=== PATIENT | male | born 1990 | race Caucasian/White ===

== ENCOUNTER 2018-09-21 19:45 | Emergency (ER) | payer SELFPAY ==
[2018-09-21 19:51] VITALS: BMI 28.0
[2018-09-21 20:58] VITALS: TEMP 97.7
--- NOTE | 2018-09-21 21:38 | ED PDOC ---
Arrival/HPI - General Chief Complaint: Upper Extremity Problem/Injury Time Seen by Provider: 09/21/18 19:50 Historian: Patient - History of Present Illness Narrative History of Present Illness (Text): 09/21/18 21:36 A 28 year old male, presents to the ED for further evaluation of right shoulder discomfort. Patient states he had been boxing and thinks he "over did it" hitting the bag. He complains of discomfort with his shoulder over the past few days. No history of any blunt trauma. He states he is able to move his arm at the shoulder although he experiences discomfort when doing so. The patient denies fevers, chills, headache, dizziness, chest pain, shortness of breath, dyspnea on exertion, cough, abdominal pain, nausea, vomiting, diarrhea, back pain, neck pain, urinary/bowel changes, or any other complaint. Time/Duration: Other (Several Days) Symptom Onset: Sudden Symptom Course: Unchanged Activities at Onset: Rest, Light Context: Home Past Medical History - Provider Review Nursing Documentation Reviewed: Yes - Infectious Disease Hx of Infectious Diseases: None - Tetanus Immunization Tetanus Immunization: Unknown - Psychiatric Hx Psychophysiologic Disorder: No Hx Substance Use: No - Anesthesia Hx Anesthesia: No - Suicidal Assessment Feels Threatened In Home Enviroment: No Family/Social History - Physician Review Nursing Documentation Reviewed: Yes Family/Social History: No Known Family HX Smoking Status: Never Smoked Hx Alcohol Use: Yes Frequency of alcohol use: Socially Hx Substance Use: No Allergies/Home Meds Allergies/Adverse Reactions: Allergies No Known Allergies Allergy (Verified 09/21/18 19:51) Review of Systems - Physician Review All systems were reviewed & negative as marked: Yes - Review of Systems Constitutional: absent: Fevers Respiratory: absent: SOB, Cough Cardiovascular: absent: Chest Pain, LOPEZ Gastrointestinal: absent: Abdominal Pain, Stool Changes, Diarrhea, Nausea, Vomiting Genitourinary Male: absent: Urinary Output Changes Musculoskeletal: absent: Back Pain, Neck Pain Neurological: absent: Headache, Dizziness Physical Exam Vital Signs Reviewed: Yes Vital Signs Temp Pulse Resp BP Pulse Ox 09/21/18 20:05 97.7 F 90 20 145/88 99 09/21/18 19:54 97.8 F 91 H 18 143/83 97 Temperature: Afebrile Blood Pressure: Normal Pulse: Tachycardic Respiratory Rate: Normal Appearance: Positive for: Well-Appearing, Non-Toxic, Comfortable Pain Distress: None Mental Status: Positive for: Alert and Oriented X 3 - Systems Exam Head: Present: Atraumatic, Normocephalic Pupils: Present: PERRL Extroacular Muscles: Present: EOMI Conjunctiva: Present: Normal Mouth: Present: Moist Mucous Membranes Neck: Present: Normal Range of Motion Respiratory/Chest: Present: Clear to Auscultation, Good Air Exchange. No: Respiratory Distress, Accessory Muscle Use Cardiovascular: Present: Regular Rate and Rhythm, Normal S1, S2. No: Murmurs Abdomen: No: Tenderness, Distention, Peritoneal Signs Back: Present: Normal Inspection Upper Extremity: Present: Normal ROM, Tenderness (Some palpable discomfort to right anterior/ superior shoulder. Discomfort to right shoulder abduction. ), Neurovascularly Intact. No: Cyanosis, Edema Lower Extremity: Present: Normal Inspection. No: Edema Neurological: Present: GCS=15, CN II-XII Intact, Speech Normal Skin: Present: Warm, Dry, Normal Color. No: Rashes Psychiatric: Present: Alert, Oriented x 3, Normal Insight, Normal Concentration Medical Decision Making ED Course and Treatment: Impression: A 28 year old male presents to the ED for further evaluation of right shoulder pain. Plan: -- Right Shoulder X- Ray -- Toradol -- Reassess and disposition Progress Notes: 09/21/18 21:36: Shoulder X- Ray read and interpreted by me shows no acute process 09/21/18 21:42 On re-evaluation, patient feels better and is in no acute distress. I have discussed the results and plan with the patient, who expresses understanding. Patient in agreement with plan to be discharged home. Patient is stable for discharge. Patient was instructed to follow up with physician or return if symptoms worsen or new concerning symptoms arise. - RAD Interpretation Radiology Orders: 09/21/18 20:02 SHOULDER RIGHT [RAD] Stat - Medication Orders Current Medication Orders: Discontinued Medications Ketorolac Tromethamine (Toradol) 60 mg IM ONCE ONE Stop: 09/21/18 20:04 Last Admin: 09/21/18 20:42 Dose: 60 mg [facility] Pain Assessment Document 09/21/18 20:42 EQ (Rec: 09/21/18 20:43 EQ [id number]) Pain Reassessment Is this a pain reassessment? No Sleep Is patient sleeping during reassessment? No Presence of Pain Presence of Pain Yes IM Administration Charges Document 09/21/18 20:42 EQ (Rec: 09/21/18 20:43 EQ [facility] [id number]) Charges for Administration # of IM Administrations 1 - Scribe Statement The provider has reviewed the documentation as recorded by the Scribe Keysha Monique Provider Scribe Attestation: All medical record entries made by the Scribe were at my direction and personally dictated by me. I have reviewed the chart and agree that the record accurately reflects my personal performance of the history, physical exam, medical decision making, and the department course for this patient. I have also personally directed, reviewed, and agree with the discharge instructions and disposition. Disposition/Present on Arrival - Present on Arrival Any Indicators Present on Arrival: No History of DVT/PE: No History of Uncontrolled Diabetes: No Urinary Catheter: No History of Decub. Ulcer: No History Surgical Site Infection Following: None - Disposition Have Diagnosis and Disposition been Completed?: Yes Diagnosis: Shoulder tendinitis, Shoulder sprain Disposition: HOME/ ROUTINE Disposition Time: 21:39 Patient Plan: Discharge Condition: GOOD Discharge Instructions (ExitCare): Shoulder Tendinopathy (DC), Shoulder Sprain (DC) Additional Instructions: Take meds as prescribed/follow up with the orthopedist this week Prescriptions: Naproxen [Naprosyn] 500 mg PO BID PRN #14 tab PRN Reason: Pain Referrals: FAMILY PROVIDER,NO [Primary Care Provider] - Follow up with primary Vikram Martinez MD [Staff Provider] - Follow up with primary Orth[facility] at [Outside] - Follow up with primary Forms: [email or web address] (Swedish)
--- NOTE | 2018-09-21 21:51 | RAD ---
PROCEDURE: Radiographs of the Right Shoulder, three views HISTORY: shoulder pain COMPARISON: No prior. FINDINGS: BONES: No acute displaced fracture. The distal clavicle and underlying ribs appear intact. JOINTS: No acute dislocation. SOFT TISSUES: Soft tissues appear unremarkable. No evidence of radiopaque foreign body. Tiny probable calcified granulomas within the included portions of the right upper lobe. IMPRESSION: No acute displaced fracture or dislocation evident. If symptoms persist or if there is continued clinical concern, x-ray follow-up in 7-10 days should be considered.
[2018-09-21 21:57] VITALS: BP 122/81; PULSE 79; RESP 17; O2SAT 100
== END 2018-09-21 21:56 | disposition home or self-care (01) ==
LOC: ED 19:45
DX: S43.401A Unspecified sprain of right shoulder joint, initial encounter (principal); M75.91 Shoulder lesion, unspecified, right shoulder; X50.9XXA Other and unspecified overexertion or strenuous movements or postures, initial encounter; Y93.71 Activity, boxing
CPT/HCPCS: 29240; 73030; 96372; 99284; J1885